=== PATIENT | female | born 1995 | race African-American/Black ===

== ENCOUNTER 2021-06-01 18:58 | Emergency (ER) | payer OTHER ==
[2021-06-01 19:19] LABS: BASOPHILS % (AUTO) 0.5 %; EOSINOPHILS % (AUTO) 0.5 %; HCT - HEMATOCRIT 39.3 % (37.0-47.0); HGB - HEMOGLOBIN 13.1 g/dL (12.0-16.0); MEAN CORPUSCULAR HEMOGLOBIN 27.3 pg (27.0-31.0); MEAN CORPUSCULAR HGB CONC 33.3 g/dL (32.0-36.0); MEAN CORPUSCULAR VOLUME 81.9 fL (81.0-99.0); MEAN PLATELET VOLUME 10.8 fL (7.9-10.8); MONOCYTES # (AUTO) 0.5 10^3/uL (0.0-1.0); MONOCYTES % (AUTO) 5.8 %; NEUTROPHILS # (AUTO) 6.2 10^3/uL (1.5-6.6); NEUTROPHILS % (AUTO) 69.9 %; PLT - PLATELET COUNT 269 10^3/uL (130-450); RED CELL DISTRIBUTION WIDTH 13.7 % (12.0-15.0); WHITE BLOOD COUNT 8.8 x10^3/uL (4.8-10.8)
[2021-06-01 19:32] LABS: ALBUMIN 4.6 g/dL (3.2-5.5); ALBUMIN/GLOBULIN RATIO 1.4 (1.0-2.2); BILIRUBIN,TOTAL 0.7 mg/dL (0.2-1.0); CALCIUM 9.2 mg/dL (8.5-10.3); CREATININE 0.8 mg/dL (0.4-1.0); POTASSIUM 3.7 mmol/L (3.5-5.0); TOTAL PROTEIN 7.8 g/dL (6.7-8.2)
[2021-06-01 20:03] LABS: BILIRUBIN,URINE NEGATIVE (NEGATIVE); GLUCOSE, URINE (UA) NEGATIVE (NEGATIVE); KETONES,URINE (UA) NEGATIVE (NEGATIVE); LEUKOCYTE ESTERASE, URINE NEGATIVE (NEGATIVE); NITRITE,URINE NEGATIVE (NEGATIVE); OCCULT BLOOD,URINE NEGATIVE (NEGATIVE); PH,URINE 7.5 PH (5.0-7.5); PROTEIN,URINE NEGATIVE (NEGATIVE); UROBILINOGEN,URINE 0.2 (NORMAL) E.U./dL (NORMAL)
[2021-06-01 20:06] LABS: CLARITY,URINE CLEAR (CLEAR); HCG UR QUAL NEGATIVE
--- NOTE | 2021-06-01 20:17 | ED Physician Documentation ---
PD HPI ABD PAIN - Stated complaint Stated Complaint: ABD PX,NAUSEA - Chief complaint Chief Complaint: Abd Pain - History obtained from History obtained from: Patient - History of Present Illness Timing - onset: How many days ago (2) Timing - details: Gradual onset, Constant, Waxing and waning Pain level now: 6 Quality: Pain (burning) Location: Epigastric Radiation: Other (does not radiate) Associated symptoms: Nausea, Vomiting, Diarrhea. No: Fever, Hematemesis, Melena, Hematochezia Similar symptoms before: Has not had sx before Recently seen: Not recently seen - Additional information Additional information: c/o 2 days of upper abdominal/epigastric burning pain with nausea, vomiting, and diarrhea. Denies fever. Has not had these symptoms before. She had a few alcoholic drinks the night before symptoms began. She is tolerating small amounts of liquids Review of Systems Constitutional: denies: Fever, Chills, Sweats Cardiac: reports: Reviewed and negative Respiratory: reports: Reviewed and negative GI: reports: Abdominal Pain, Nausea, Vomiting, Diarrhea. denies: Abdominal Swelling, Hematemesis, Bloody / black stool : denies: Dysuria, Frequency, Now EGA Neurologic: denies: Headache PD PAST MEDICAL HISTORY - Past Medical History Past Medical History: No - Present Medications Home Medications: Ambulatory Orders Medication Instructions Recorded Confirmed Diphenoxylate/Atropine [Lomotil] 1 each PO QID PRN #10 tablet 06/01/21 Esomeprazole Magnesium [Nexium 20 mg PO DAILY #14 06/01/21 24Hr] Ondansetron Odt [Zofran] 4 mg TL Q6H PRN #14 tablet 06/01/21 - Allergies Allergies/Adverse Reactions: Allergies Allergy/AdvReac Type Severity Reaction Status Date / Time No Known Drug Allergies Allergy Verified 06/01/21 19:01 - Living Situation Living Arrangement: reports: At home - Social History Does the pt drink ETOH?: Yes ETOH Use: Other (occasional (neither heavy nor regular alcohol consumption)) PD ED PE NORMAL - Vitals Vital signs reviewed: Yes - General General: Alert and oriented X 3, No acute distress, Well developed/nourished - HEENT HEENT: Moist mucous membranes - Neck Neck: Supple, no meningeal sign - Cardiac Cardiac: RRR, No murmur - Respiratory Respiratory: No respiratory distress, Clear bilaterally - Abdomen Abdomen: Normal bowel sounds, Soft, Non tender, Non distended - Back Back: No CVA TTP Results - Vitals Vitals: Oxygen O2 Source Room air - Labs Labs: Laboratory Tests 06/01/21 06/01/21 06/01/21 19:12 19:12 19:48 WBC 8.8 RBC 4.80 Hgb 13.1 Hct 39.3 MCV 81.9 MCH 27.3 MCHC 33.3 RDW 13.7 Plt Count 269 MPV 10.8 Neut # (Auto) 6.2 Lymph # (Auto) 2.0 Cherry # (Auto) 0.5 Eos # (Auto) 0.0 Baso # (Auto) 0.0 Absolute Nucleated RBC 0.00 Nucleated RBC % 0.0 Sodium 137 Potassium 3.7 Chloride 101 Carbon Dioxide 25 Anion Gap 11.0 BUN 9 Creatinine 0.8 Estimated GFR (MDRD) 105 Glucose 109 H Calcium 9.2 Total Bilirubin 0.7 AST 17 ALT 15 Alkaline Phosphatase 46 Total Protein 7.8 Albumin 4.6 Globulin 3.2 Albumin/Globulin Ratio 1.4 Lipase 23 Urine Color Urine Clarity Urine pH Ur Specific [place] Urine Protein Urine Glucose (UA) Urine Ketones Urine Occult Blood Urine Nitrite Urine Bilirubin Urine Urobilinogen Ur Leukocyte Esterase Ur Microscopic Review Urine Culture Comments Urine HCG, Qual NEGATIVE 06/01/21 19:48 WBC RBC Hgb Hct MCV MCH MCHC RDW Plt Count MPV Neut # (Auto) Lymph # (Auto) Cherry # (Auto) Eos # (Auto) Baso # (Auto) Absolute Nucleated RBC Nucleated RBC % Sodium Potassium Chloride Carbon Dioxide Anion Gap BUN Creatinine Estimated GFR (MDRD) Glucose Calcium Total Bilirubin AST ALT Alkaline Phosphatase Total Protein Albumin Globulin Albumin/Globulin Ratio Lipase Urine Color YELLOW Urine Clarity CLEAR Urine pH 7.5 Ur Specific [place] 1.015 Urine Protein NEGATIVE Urine Glucose (UA) NEGATIVE Urine Ketones NEGATIVE Urine Occult Blood NEGATIVE Urine Nitrite NEGATIVE Urine Bilirubin NEGATIVE Urine Urobilinogen 0.2 (NORMAL) Ur Leukocyte Esterase NEGATIVE Ur Microscopic Review NOT INDICATED Urine Culture Comments NOT INDICATED Urine HCG, Qual PD MEDICAL DECISION MAKING - ED course Complexity details: reviewed results, re-evaluated patient, considered differential, d/w patient ED course: c/o epigastric burning with abdominal pain, nausea, vomiting, and liquid stool. Unremarkable labs/UA and nontender on exam. PUD vs gastritis is suspected. Given IV fluids, zofran, protonix, and PO lomotil with improvement (per patient on reevaluation). Departure - Departure Disposition: 01 Home, Self Care Clinical Impression: Gastritis Condition: Good Instructions: ED PUD Vs Gastritis Follow-Up: STEVEN Elias [Provider Group] Prescriptions: Diphenoxylate/Atropine [Lomotil] 1 each PO QID PRN #10 tablet PRN Reason: Diarrhea Esomeprazole Magnesium [Nexium 24Hr] 20 mg PO DAILY #14 Ondansetron Odt [Zofran] 4 mg TL Q6H PRN #14 tablet PRN Reason: Nausea / Vomiting Forms: Activity restrictions Discharge Date/Time: 06/01/21 21:59
[2021-06-01] MEDS ORDERED: PANTOPRAZOLE 40 MG VIAL IVP STA (20:30)
[2021-06-01] MEDS ORDERED: ONDANSETRON 4 MG/2 ML VIAL IVP STA (20:30)
[2021-06-01] MEDS ORDERED: SODIUM CHLORIDE 0.9% 1,000 ML IV STA (20:30)
[2021-06-01] MEDS ORDERED: DIPHENOX/ATROPINE 2.5/0.025 MG TABLET PO STA (20:31)
[2021-06-01 21:06] VITALS: BP 118/80
== END 2021-06-01 21:59 | disposition home or self-care (01) ==
LOC: ED 18:58
DX: K29.70 Gastritis, unspecified, without bleeding (principal)
CPT/HCPCS: 36415; 80053; 81003; 81025; 83690; 85025; 96361; 96374; 99283; 99284; A9270; 81001; 87086

== ENCOUNTER 2021-10-07 17:08 | Outpatient (CLI) | payer OTHER | END 2021-10-07 23:59 | disposition home or self-care (01) | LOC: LAB 17:08 | PROVIDERS: ATTEND Family Medicine | DX: R05.9 Cough, unspecified (principal); Z20.822 Contact with and (suspected) exposure to COVID-19 ==

== ENCOUNTER 2022-06-18 08:00 | Outpatient (CLI) | payer OTHER ==
[2022-06-18 23:00] LABS: BACTERIAL VAGINOSIS DNA NEGATIVE (NEGATIVE); CANDIDA GLABRATA DNA NEGATIVE (NEGATIVE); CANDIDA GROUP DNA NEGATIVE (NEGATIVE); CANDIDA KRUSEI DNA NEGATIVE (NEGATIVE); TRICHOMONAS VAGINALIS DNA NEGATIVE (NEGATIVE)
== END 2022-06-18 23:59 | disposition home or self-care (01) ==
LOC: LAB.N 08:00
PROVIDERS: ATTEND Nurse Practitioner
DX: N89.8 Other specified noninflammatory disorders of vagina (principal)
CPT/HCPCS: 81514

== ENCOUNTER 2023-02-08 11:02 | Day surgery (SDC) | payer OTHER ==
[2023-02-08] MEDS ORDERED: LACTATED RINGERS 1,000 ML IV ONE ×3 (11:16→16:09)
[2023-02-08] MEDS ORDERED: LIDOCAINE 2%-EPI 1:100000 20 ML MDV ONE (11:43)
[2023-02-08] MEDS ORDERED: BUPIVACAINE 0.25% PF 30 ML VIAL ONE (11:43)
[2023-02-08] MEDS ORDERED: MORPHINE 2 MG/ML CARPUJECT IVP PRN (12:33)
[2023-02-08] MEDS ORDERED: ONDANSETRON 4 MG/2 ML VIAL IVP PRN (12:33)
[2023-02-08] MEDS ORDERED: ATROPINE ABBOJECT 1 MG/10 ML SYRINGE IVP PRN (12:33)
[2023-02-08] MEDS ORDERED: HYDROmorphone 0.5 MG/0.5 ML SYRINGE IVP PRN (12:33)
[2023-02-08] MEDS ORDERED: fentaNYL 100 MCG/2 ML VIAL IVP PRN (12:33)
[2023-02-08] MEDS ORDERED: NALOXONE 0.4 MG/ML VIAL IVP PRN (12:33)
[2023-02-08] MEDS ORDERED: PROPOFOL 200 MG/20 ML VIAL IVP ONE (12:34)
[2023-02-08] MEDS ORDERED: fentaNYL 100 MCG/2 ML VIAL ONE ×3 (12:34→15:07)
[2023-02-08] MEDS ORDERED: ROCURONIUM 50 MG/5 ML VIAL ONE ×2 (12:34→14:04)
[2023-02-08] MEDS ORDERED: MIDAZOLAM 2 MG/2 ML VIAL ONE (12:34)
[2023-02-08] MEDS ORDERED: SCOPOLAMINE PATCH TOP SCH (13:00)
[2023-02-08] MEDS ORDERED: LACTATED RINGERS 1,000 ML IV SCH (13:00)
--- NOTE | 2023-02-08 13:00 | ANESTHESIA ---
Pre-Anesthesia VS, & Labs - Diagnosis desires sterilization - Procedure Nasir. salpingectomy Vital Signs: Temp Pulse Resp BP Pulse Ox O2 Flow Rate 37.3 C 87 16 139/90 H 100 02/08/23 11:27 02/08/23 11:27 02/08/23 11:27 02/08/23 11:27 02/08/23 11:27 Height: 5 ft 7 in Weight (kg): 104 kg Body Mass Index: 35.9 BMI Classification: Obese - NPO >8 hours - Is Patient ?: No Home Medications and Allergies Home Medications: Ambulatory Orders Ibuprofen [Motrin] 600 mg PO Q6H PRN 02/04/23 Active Medications Atropine Sulfate (Atropine Abboject 1 Mg/10 Ml Syringe) 0.5 mg IVP Q5M PRN PRN Reason: Bradycardia Stop: 02/09/23 12:33 Fentanyl (Fentanyl 100 Mcg/2 Ml Vial) 25 - 50 mcg IVP Q5M PRN PRN Reason: BREAKTHROUGH PAIN (2nd Choice) Stop: 02/09/23 12:33 Hydromorphone HCl (Hydromorphone 0.5 Mg/0.5 Ml Syringe) 0.2 - 0.6 mg IVP Q5M PRN PRN Reason: PAIN (First Choice) Stop: 02/09/23 12:33 Lactated Ringer's (Lr) 1,000 mls @ 100 mls/hr IV .Q10H TOÑO Stop: 02/08/23 22:59 Morphine Sulfate (Morphine 2 Mg/Ml Carpuject) 2 - 4 mg IVP Q5M PRN PRN Reason: PAIN (3rd Choice) Stop: 02/09/23 12:33 Naloxone HCl (Naloxone 0.4 Mg/Ml Vial) 0.1 mg IVP Q2M PRN PRN Reason: RESP RATE <8 Stop: 02/09/23 12:33 Ondansetron HCl (Ondansetron 4 Mg/2 Ml Vial) 4 mg IVP ONCE PRN PRN Reason: N/V (First Choice) Stop: 02/09/23 12:33 Scopolamine HBr (Scopolamine Patch) 1 patch TOP Q3D TOÑO Ibuprofen [Motrin] 600 mg PO Q6H PRN 02/04/23 Allergies/Adverse Reactions: Allergies Allergy/AdvReac Type Severity Reaction Status Date / Time No Known Drug Allergies Allergy Verified 06/01/21 19:01 Anes History & Medical History - Anesthetic History Family history of Anesthesia Complications: Denies Family history of Malignant Hyperthermia: Denies - Medical History Cardiovascular: reports: None Pulmonary: reports: None Gastrointestinal: reports: GERD Urinary: reports: None Neuro: reports: Migraines Musculoskeletal: reports: Fibromyalgia, Chronic back pain Endocrine/Autoimmune: reports: None Skin: reports: None Smoking Status: Never smoker Psychosocial: reports: No issues indicated History of Cancer?: No Exam General: Alert, Oriented x3, Cooperative, No acute distress Dental: WNL Mouth Openin Fingerbreadth Neck Mobility: Normal Mallampati classification: II Thyromental Distance: 4-6 cm Mental/Cognitive Status: Alert/Oriented X3, Normal for patient Plan Anesthesia Type: General Consent for Procedure(s) Verified and Reviewed: Yes Code Status: Attempt Resuscitation ASA classification: 2-Mild systemic disease Is this case an emergency?: No
[2023-02-08 13:04] LABS: HCG UR QUAL NEGATIVE
[2023-02-08] MEDS ORDERED: SCOPOLAMINE PATCH TOP ONE (13:04)
[2023-02-08] MEDS ORDERED: DEXAMETHASONE 4 MG/ML VIAL ONE (13:42)
[2023-02-08] MEDS ORDERED: KETOROLAC 30 MG/ML VIAL ONE (13:42)
[2023-02-08] MEDS ORDERED: ONDANSETRON 4 MG/2 ML VIAL ONE ×2 (13:42→15:02)
[2023-02-08] MEDS ORDERED: SEVOFLURANE 250 ML LIQUID INH ONE (14:07)
[2023-02-08] MEDS ORDERED: LIDOCAINE MPF 2%-EPI 1:200000 20 ML VIAL SUBQ ONE ×2 (14:19)
[2023-02-08] MEDS ORDERED: BUPIVACAINE 0.25% PF 30 ML VIAL SUBQ ONE ×2 (14:19)
[2023-02-08] MEDS ORDERED: SUGAMMADEX 200 MG/2 ML VIAL IVP ONE (14:29)
[2023-02-08] MEDS ORDERED: HYDROmorphone 1 MG/ML CARPUJECT ONE (15:06)
[2023-02-08] MEDS ORDERED: LACTATED RINGERS 550 ML IV ONE (15:10)
--- NOTE | 2023-02-08 15:11 | OPERATIVE REPORT ---
Operative Report - General Planned Procedure: Laparoscopic bilateral salpingectomy Pre-Op Diagnosis: Desires permanent sterilization Procedure Performed: Laparoscopic bilateral salpingectomy Post Op Diagnosis: Desires permanent sterilization - Procedure Note Primary Surgeon: Tangela Grady DO Secondary Surgeon: Natividad Perry; assistance required for retraction and safe completion Anesthesia Provider: Rach Hitchcock CRNA Anesthesia Technique: General ET tube Pathology: Bilateral oviducts Estimated Blood Loss (mL): 20 Urine Output (mL): 150 Indications: Desires permanent sterilization Findings: Normal appearing uterus, oviducts, ovaries Complications: None - Other Other Information/Narrative: Patient taken to OR where GETA obtained without difficulty. Placed in dorsal lithotomy position and prepped and draped in sterile fashion. [place] speculum placed in vagina and anterior lip of cervix grasped with single tooth tenaculum. [place] uterine manipulator placed. Tenaculum and speculum removed. Attention then turned to abdomen where 5mm vertical skin incision made in umbilical fold. Veress needle carefully introduced into peritoneal cavity. Intraperitoneal placement confirmed with drop test and drop in intraabdominal pressure with CO2 gas insufflation. Trocar and sleeve advanced without difficulty into abdomen where intraabdominal placement confirmed with laparoscope. Two additional 5mm incisions made in pelvis bilaterally and trocars introduced under direct visualization. 2% lidocaine with epinephrine/0.25% marcine injection prior to skin incisions x3. Aforementioned findings noted. Left fallopian tube grasped and LigaSure device used for transection along mesosalpinx up to uterine cornu. This was repeated on the right fallopian tube. Tubes removed through left 5mm port. Hemostasis at all dissection sites. Trocars removed under direct visualization. Pneumoperitoneum released. Umbilical trocar removed. 5mm incisions x3 were closed with 4-0 monocryl and dermabond. Sponge, lap, needle, and instrument counts were correct x2. Patient taken to PACU in stable condition.
[2023-02-08] MEDS ORDERED: traMADol 50 MG TABLET PO SCH (16:00)
--- NOTE | 2023-02-08 16:11 | ANESTHESIA POST OP EVALUATION ---
Anesthesia Post Eval - Post Anesthesia Eval Vitals: Last Vital Signs Temp 36.3 C L 02/08/23 16:05 Pulse 79 02/08/23 16:05 Resp 16 02/08/23 16:05 BP 130/82 H 02/08/23 16:05 Pulse Ox 100 02/08/23 16:05 O2 Flow Rate CV Function Including HR & BP: Stable Pain Control: Satisfactory Nausea & Vomiting: Negative Mental Status: Baseline Respiratory Status: Airway Patent Hydration Status: Satisfactory Anesthesia Complications: None
[2023-02-08 16:41] VITALS: BP 150/90
== END 2023-02-08 11:03 | disposition home or self-care (01) ==
LOC: SDS 11:02
PROVIDERS: ATTEND Obstetrics & Gynecology
PROC: 0UT74ZZ Resection of Bilateral Fallopian Tubes, Percutaneous Endoscopic Approach (ICD-10-PCS; principal; 2023-02-08 12:30)
DX: Z30.2 Encounter for sterilization (principal); E66.9 Obesity, unspecified; Z68.35 Body mass index [BMI] 35.0-35.9, adult
CPT/HCPCS: 58661; 81025; J1170; J3490; J7120

== ENCOUNTER 2023-03-29 17:52 | Outpatient (CLI) | payer OTHER | END 2023-03-29 23:59 | disposition critical access hospital (66) | LOC: EMS 17:52 | DX: Z04.1 Encounter for examination and observation following transport accident (principal); R20.0 Anesthesia of skin; R06.4 Hyperventilation; R29.0 Tetany; R45.89 Other symptoms and signs involving emotional state | CPT/HCPCS: A0425; A0429 ==

== ENCOUNTER 2023-07-14 10:40 | Outpatient (CLI) | payer OTHER ==
--- NOTE | 2023-07-14 11:35 | Sleep Patient Instructions ---
Sleep Center Visit Summary - Patient Visit Information Reason for Visit: Initial consult for evaluation of sleep disordered breathing and other sleep issues. - Patient Instructions Instructions Attached: Sleep Study Additional Instructions: You will be completing a sleep study, either an in-lab polysomnography (PSG) or home sleep study (HST). You will follow-up in the sleep care office after the sleep study is completed to hear the results and talk about therapy, if needed. You will be called by our office staff to schedule this appointment, but you may contact us with any questions. - Clinic Information Contact: [facility] [address] [place] [address] [email or web address] T: [phone]
--- NOTE | 2023-07-14 11:38 | SLEEP CARE CONSULTATION ---
Information from patient questionnaire entered by Emeka Maria. I have reviewed and concur with the information entered by Emeka Maria. This document represents the service I personally performed and the decisions made by me, Isamar Montoya ARNP. History of Present Illness Service Date and Time: 07/14/2023 1040 Reason for Visit: New patient Chief Complaint: reports: Unrefreshed sleep, Snoring, Excessive daytime sleepiness, Fatigue, Frequent awakenings at night Date of Onset: 2-3 years Usual bedtime: 10:30, 11 PM Time it takes to fall asleep: with medicine 2 + hours Snores at night: Yes Observed to quit breathing while asleep: No Sleeps alone due to snoring: No Number of times waking at night: 3-4 Reasons for waking at night: reports: Other (Noise, nightmares, unknown reason). denies: Choking, Gasping for air Toss, Turn, or Twitch while sleeping: Yes Recalls having dreams: Yes Usually gets out of bed at: 0530 AM; weekends sometimes to 0800 but usually earlier Feels refreshed in the morning: No Morning headache: Yes (most mornings; don't resolve; "I have migraines all day") Sleepy or fatigued during the day: Yes Ever fallen asleep while driving: Yes (drowsy driving; no accidents) Takes day naps: Yes (sometimes after work, few hours (3 times a week)) Dreams during day naps: No Prior sleep studies: No Additional HPI information: I had the pleasure of seeing ANUSHA MCCARTHY today regarding the possibility of her having a sleep disorder. Her current complaints are excessive daytime sleepiness, fatigue, frequent night awakenings, snoring and unrefreshed sleep. She says she is always tired throughout the day. She states she rarely feels rested despite sleeping at night. She has reduced her caffeine intake as recommended by her doctor. She feels like when she is driving she is having harder time with drowsiness, especially if she leans back in her seat. She is a snorer. She denies waking up choking or gasping for air. She wakes up feeling groggy from waking up several times a night, 3-4 times on average. Sometimes she will have nightmares that will wake her up but normally not other dreaming. - Parasomnia Symptoms Ever been unable to move upon waking from sleep: Yes (2-3 times) Walks in sleep: Yes (has not done lately; usually when not in own bed) Talks in sleep: Yes Ever acted out dreams in sleep: Yes ("fight in her sleep" according to roommates; shaking) Ever felt weak in the knees when startled or emotional: Yes Bothered by creepy, crawly, restless sensations in legs: Yes (sometimes, sensation of something on her arms) Problems with memory or concentration: Yes (both) Subjective Initial [place] Sleepiness Scale score: 15 (in 2022) Past Medical History Past Medical History: reports: Fibromyalgia, Anxiety, Depression, GERD Social History The patient's occupation is a active duty in the . Patient is and lives in [place]. Have you smoked in the past 12 months: No Alcohol use: No Caffeine use: Yes Caffeine amount and frequency: 1 cup in the morning Family History Family history of sleep disordered breathing: No Allergies and Home Medications Known drug allergies: No Drug allergies reviewed: Yes Home medication list reviewed: Yes (she will bring in med list next time; has others, unsure of names) Allergy and home medication list: Allergies No Known Drug Allergies Allergy (Verified 07/13/23 10:36) Home Medications Medication Instructions Recorded Confirmed Last Taken Type Cyclobenzaprine [Flexeril] 10 mg PO TID PRN #20 tablet 03/29/23 07/14/23 Unknown Rx Gabapentin [Neurontin] 100 mg PO ONCE 03/29/23 07/14/23 Unknown History Review of Systems Weight gain over past 5 years: 70 Cardiovascular: denies: high blood pressure Gastrointestinal: reports: heartburn, difficulty swallowing, diarrhea Neurological: reports: headaches Psychiatric: reports: anxiety, depression Ear/Nose/Throat: denies: tonsillectomy Endocrine: reports: sluggishness (/tired) Musculoskeletal: reports: joint pain (/stiffness), neck pain, muscle pain or cramping, mobility problems Physical Exam Vital signs obtained and entered by: Isamar Bird NP Blood Pressure: 111/78 Cuff size: wrist (left) Heart Rate: 75 O2 Saturation: 98 Height: 5 ft 7 in Weight: 251 lb Body Mass Index: 39.3 BMI Classification: Obese Neck circumference: 15.5 (inches) Mouth and throat: narrow oropharynx Soft palate: long Hard palate: normal Uvula: normal Uvula visualization: 25% Mallampati Class III Tongue: enlarged in size with teeth pena on lateral edges Tonsils: small Neck: normal w/o lymphadenopathy or thyromegaly Heart: regular rate and rhythm Lungs: clear bilaterally Impression and Plan 1. Suspected Obstructive Sleep Apnea-Hypopnea Syndrome, as suggested by a history of irregular snoring, morning headache, frequent awakening during the night, unrefreshed sleep, cognitive impairment, and excessive daytime sleepiness. Narrow oropharynx and obesity are common predisposing factors for obstructive sleep apnea-hypopnea syndrome. I recommend proceeding to polysomnography to confirm the diagnosis and to assess severity. If the patient has significant sleep disordered breathing, a manual CPAP titration study will also be performed to find the optimal treatment pressure. I informed the patient of what the sleep studies involve and after some discussion, obtained agreement to proceed. The pathophysiology of obstructive sleep apnea-hypopnea syndrome was discussed with the patient and health risks of cardiovascular and cerebrovascular disease if not treated. Risks of drowsy driving discussed in detail and patient advised to avoid long distance driving and to kiln puller at the first sign of drowsiness. Patient agreed to plan. * Schedule polysomnography. * Avoid long distance driving or driving when feeling sleepy. * Avoid alcohol, sedative and muscle relaxant around bedtime. * Attempt to lose weight. * Review instructions provided by trained office staff on how to prepare for the sleep study. * Return for follow-up after sleep study completed. Counseling Topics: Weight loss health impact Plan: PSG Visit Type: In Office Time Spent with Patient (minutes): 31 Provider Statement: I spent 100% of the Face to Face Visit with the patient with greater than 50% spent counseling the patient and coordination of care.
[2023-07-14 11:46] VITALS: BP 111/78; O2SAT 98
== END 2023-07-14 10:41 | disposition home or self-care (01) ==
LOC: SC 10:40
PROVIDERS: ATTEND Nurse Practitioner Family
DX: R06.83 Snoring (principal); R51.9 Headache, unspecified; G47.8 Other sleep disorders; R41.89 Other symptoms and signs involving cognitive functions and awareness; G47.10 Hypersomnia, unspecified; E66.9 Obesity, unspecified; Z68.39 Body mass index [BMI] 39.0-39.9, adult
CPT/HCPCS: 99203; 99212

== ENCOUNTER 2023-08-15 19:23 | Outpatient (CLI) | payer OTHER | END 2023-08-15 19:24 | disposition home or self-care (01) | LOC: SC 19:23 | PROVIDERS: ATTEND Nurse Practitioner Family | DX: G47.61 Periodic limb movement disorder (principal) | CPT/HCPCS: 95810 ==

== ENCOUNTER 2023-09-01 12:39 | Outpatient (CLI) | payer OTHER ==
--- NOTE | 2023-09-01 13:01 | Sleep Patient Instructions ---
Sleep Center Visit Summary - Patient Visit Information Reason for Visit: Sleep Study followup - Patient Instructions Instructions Attached: Snoring Tips Prevent Additional Instructions: Your sleep study today was negative for significant sleep disordered breathing. You were found to have episodes of snoring. There are different ways to control snoring including weight loss, oral devices made by a dentist or surgical options through ENT specialist. You should not use oral devices that do not fit properly because they can affect your bite. You should also check insurance coverage of oral devices for snoring because they may not be cover well. You may obtain a referral to an ENT specialist through your primary provider. Follow-up as needed. - Clinic Information Contact: [facility] [address] [place] [address] [email or web address] T: [phone]
--- NOTE | 2023-09-01 13:03 | SLEEP CARE CONSULTATION ---
Information from patient questionnaire entered by Chana Brown. I have reviewed and concur with the information entered by Chana Brown. This document represents the service I personally performed and the decisions made by , Isamar Montoya ARNP. History of Present Illness Service Date and Time: 09/01/2023 1239 Initial [place] Sleepiness Scale score: 15 (in 2022) Current [place] Sleepiness Scale score: 14 (09/01/23) Additional HPI information: ANUSHA MCCARTHY returns for follow up and results of the recently performed polysomnography. The patient was informed of the following findings: No significant sleep disordered breathing with an average AHI of 0.8 and rose[place] oxygen saturation of 82%. I explained the pathophysiology behind obstructive sleep apnea. Patient does not have sleep apnea and was advised how weight gain could increase the risk of developing sleep apnea in the future. I strongly encouraged the patient to lose weight. Patient has light to loud snoring. Snoring can be reduced by weight loss. Weight loss is best achieved with diet consult. Patient instructed to contact PCP for referral. Snoring can also be treated with an oral appliance from a dentist. Advised to check insurance coverage. In addition, an ENT evaluation can be do to see if other treatment is indicated. Patient does not drink alcohol. Patient was cautioned about risks of drowsy driving until sleepiness symptoms resolve. Sleep Study - Results Type of Sleep Study: Polysomnography (COMPLETED 08/15/23) Prior sleep studies: No Polysomnography/Home Sleep Study results: IMPRESSION: The quality of the study is good. The patient had normal sleep efficiency. The sleep architecture was relatively normal as well considering the first night effect. Respiratory monitoring showed no significant sleep disordered breathing (AHI = 0.8) or hypoxia ([place] oxygen saturation of 82% but only 0.1% to the total sleep time was spent with oxygen saturation below 90%). The rare respiratory events occurred mainly during supine REM sleep (supine AHI = 1.2; non-supine = 0.35). Snore was light to loud in intensity. There was mild periodic leg movement of sleep not associated with sleep fragmentation. Cardiac rhythm was normal sinus rhythm without significant arrhythmia. No abnormal behavior (parasomnia) observed during the night. Allergies and Home Medications Known drug allergies: No Drug allergies reviewed: Yes Home medication list reviewed: Yes (Wellbutrin) Allergy and home medication list: Allergies No Known Drug Allergies Allergy (Verified 08/31/23 09:22) Review of Systems Review of systems same as previous: Yes (NO CHANGE) Physical Exam Vital signs obtained and entered by: CHANA Holman MA Blood Pressure: 125/79 (RIGHT ARM) Cuff size: regular Heart Rate: 93 O2 Saturation: 100 Height: 5 ft 7 in Weight: 249 lb Body Mass Index: 38.9 BMI Classification: Obese Impression and Plan 1. Snoring but no significant sleep disordered breathing. Patient advised that often weight loss will reduce snoring as well as apnea risk. An oral appliance can also be used for snoring. This would require a dental consultation. Patient cautioned not to use other online appliances as can cause bite issues. Patient is advised to check if insurance will cover. An ENT consult can also be helpful to determine if any other treatment is an option. 2. Periodic limb movement, mild, that did not fragment patients sleep. Periodic limb movement of sleep (PLMS) is characterized by episodes of repetitive limb movements that occur during sleep and usually involve the lower limbs. The etiology is unknown. Sleep hygiene methods can also improve sleep as well as lifestyle changes such as regular exercise. Patient was advised that no treatment is needed at this time. If symptoms increase, then further evaluation is indicated. 3. Obesity, unspecified. Currently patients BMI is 38.9. Obesity increases the risk of apnea, CPAP pressure requirements and overall health risks especially cardiovascular and diabetes. Thus patient is advised to lose weight. * Attempt to lose weight * Avoid alcohol consumption near bedtime * The patient is cautioned about driving until sleepiness is completely resolved. * Return as needed for follow up. Counseling Topics: Weight loss health impact Follow up with Sleep Care in: as needed Visit Type: In Office Time Spent with Patient (minutes): 20 Provider Statement: I spent 100% of the Face to Face Visit with the patient with greater than 50% spent counseling the patient and coordination of care.
[2023-09-01 13:07] VITALS: BP 125/79; O2SAT 100
== END 2023-09-01 12:40 | disposition home or self-care (01) ==
LOC: SC 12:39
PROVIDERS: ATTEND Nurse Practitioner Family
DX: R06.83 Snoring (principal); G47.61 Periodic limb movement disorder; E66.9 Obesity, unspecified; Z68.38 Body mass index [BMI] 38.0-38.9, adult
CPT/HCPCS: 99212; 99213